=== PATIENT | male | born 1995 | race Asian ===

== ENCOUNTER 2019-03-19 13:04 | Emergency (ER) | payer OTHER ==
[~2019-03-19] VITALS: Ht 180.3 cm; Wt 79.4 kg
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
[2019-03-19 13:30] VITALS: BP 132/86
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
--- NOTE | 2019-03-19 14:33 | NUR ---
ED Nurse Note: Pt in radiology
[2019-03-19] MEDS ORDERED: ROBAXIN-750750 MG PO (14:59)
[2019-03-19] MEDS ORDERED: IBUPROFEN600 MG ORAL (14:59)
[2019-03-19 15:00] VITALS: BP 129/84
--- NOTE | 2019-03-19 15:00 | NUR ---
ER DISCHARGE NOTE: Patient is cleared to be discharged per ERMD, pt is aox4, on room air, with stable vital signs as documented. pt was given dc and prescription instructions and was able to verbalize understanding. pt id band removed. pt is able to ambulate with steady gait. pt took all belongings.
--- NOTE | 2019-03-19 17:20 | Diagnostic Imaging Report ---
. Indications: Pain in the mid back Technique: 3 views of the thoracic spine Comparison: None Findings: Bony alignment is normal. No acute fractures. No dislocations. Vertebral body heights are preserved. Disc spaces are preserved. There is surgical hardware seen in one of the shoulders. Impression: No acute bony trauma
== END 2019-03-19 15:00 | disposition home or self-care (01) ==
LOC: EMR 13:53
DX: M54.6 Pain in thoracic spine (principal); Z13.9 Encounter for screening, unspecified; V43.62XA Car passenger injured in collision with other type car in traffic accident, initial encounter; Y92.411 Interstate highway as the place of occurrence of the external cause
CPT/HCPCS: 72070; 99283